=== PATIENT | male | born 1970 ===

== ENCOUNTER 2016-11-13 02:11 | Observation (INO) | payer MEDICAID, OTHER ==
[2016-11-13] MEDS: Albuterol-Ipratrop 3 mg / 0.5 (3 ml) UD IH SCH ×3 (02:35→03:18)
--- NOTE | 2016-11-13 02:53 | ED PDOC ---
Arrival/HPI - General Chief Complaint: Alcohol Ingestion Time Seen by Provider: 11/13/16 02:13 Historian: Patient - History of Present Illness Narrative History of Present Illness (Text): 11/13/16 02:55 A 46 year old male was brought in by EMS to the emergency department after patient was found stumbling while walking on the street. Notes falling and hitting his head but denies any loss of consciousness. Patient reports he shot up heroine prior to arrival, is a smoker and is complaining of shortness of breath and wheezing. Denies any other complaints at this time. Symptom Onset: Sudden Symptom Course: Unchanged Activities at Onset: Light Context: Street Past Medical History - Provider Review Nursing Documentation Reviewed: Yes - Infectious Disease Hx of Infectious Diseases: None - Cardiac Hx Cardiac Disorders: No Hx Hypertension: No - Pulmonary Hx Asthma: Yes - Neurological HX Cerebrovascular Accident: No Hx Seizures: No - Hematological/Oncological Hx Hepatitis C: Yes - Genitourinary/Gynecological Hx Sexually Transmitted Diseases: No - Psychiatric Hx Anxiety: Yes Hx Depression: Yes Hx Substance Use: Yes - Anesthesia Hx Anesthesia: No Family/Social History - Physician Review Nursing Documentation Reviewed: Yes Family/Social History: No Known Family HX Smoking Status: Heavy Smoker > 10 Cigarettes Daily Hx Alcohol Use: Yes Hx Substance Use: Yes Substance used: Cocaine, last used 04/25/2016 Allergies/Home Meds Allergies/Adverse Reactions: Allergies No Known Allergies Allergy (Verified 04/27/16 00:27) Home Medications: Home Meds Medication Instructions Recorded Confirmed Albuterol HFA [Ventolin HFA 90 2 puff PO PRN PRN 11/13/16 11/13/16 mcg/actuation (8 g)] Review of Systems - Physician Review All systems were reviewed & negative as marked: Yes - Review of Systems Respiratory: SOB Cardiovascular: absent: Chest Pain Gastrointestinal: absent: Abdominal Pain Physical Exam Vital Signs Reviewed: Yes Vital Signs Temp Pulse Resp BP Pulse Ox 11/13/16 04:12 84 16 132/75 95 11/13/16 02:12 97.9 F 77 12 143/86 99 Temperature: Afebrile Blood Pressure: Normal Pulse: Regular Respiratory Rate: Normal Appearance: Positive for: Well-Appearing, Non-Toxic, Comfortable Pain Distress: None Mental Status: Positive for: Alert and Oriented X 3 - Systems Exam Head: Present: Normocephalic, Abrasion (on forehead) Pupils: Present: PERRL Extroacular Muscles: Present: EOMI Conjunctiva: Present: Normal Mouth: Present: Moist Mucous Membranes Neck: Present: Normal Range of Motion Respiratory/Chest: Present: Wheezes. No: Respiratory Distress, Accessory Muscle Use Cardiovascular: Present: Regular Rate and Rhythm, Normal S1, S2. No: Murmurs Abdomen: Present: Normal Bowel Sounds. No: Tenderness, Distention, Peritoneal Signs Back: Present: Normal Inspection Upper Extremity: Present: Normal Inspection. No: Cyanosis, Edema Lower Extremity: Present: Normal Inspection. No: Edema Neurological: Present: GCS=15, CN II-XII Intact, Speech Normal Skin: Present: Warm, Dry, Normal Color. No: Rashes Psychiatric: Present: Alert, Oriented x 3, Normal Insight, Normal Concentration Medical Decision Making ED Course and Treatment: 11/13/16 02:51 Impression: A 46 year old male with shortness of breath and head injury. Plan: -- EKG -- chest xray -- CT head -- labs -- Urinalysis -- Duoneb, Solumedrol -- Reassess and disposition Prior Visits: Notes and results from previous visits were reviewed. Patient last reported to the emergency department on 04/27/16 for evaluation of suicidal ideation. Progress Notes: EKG: Ordered, reviewed, and independently interpreted the EKG. Rate : 91 BPM Rhythm : NSR Interpretation : Nonspecific ST segment changes Chest xray- No active disease, interpreted by me. - Lab Interpretations Lab Results: 11/13/16 02:45 11/13/16 02:45 Lab Results 11/13/16 03:15: Urine Color Yellow, Urine Appearance Clear, Urine pH 6.0, Ur Specific [place] 1.020, Urine Protein 30 H, Urine Glucose (UA) Negative, Urine Ketones Negative, Urine Blood Negative, Urine Nitrate Negative, Urine Bilirubin Negative, Urine Urobilinogen 0.2, Ur Leukocyte Esterase Negative, Urine RBC Negative, Urine WBC 0 - 2, Ur Epithelial Cells None 11/13/16 03:00: Urine Opiates Screen Positive H, Urine Methadone Screen Negative , Ur Barbiturates Screen Negative, Ur Phencyclidine Scrn Negative, Ur Amphetamines Screen Negative, U Benzodiazepines Scrn Negative, U Oth Cocaine Metabols Positive H, U Cannabinoids Screen Negative 11/13/16 02:45: Alcohol, Quantitative 70 H 11/13/16 02:45: Sodium 138, Potassium 4.1, Chloride 95 L, Carbon Dioxide 33, Anion Gap 14, BUN 10, Creatinine 0.8, Est GFR ( Amer) > 60, Est GFR (Non- Af Amer) > 60, Random Glucose 109, Calcium 8.8, Total Bilirubin 0.4, AST 166 H, ALT 212 H, Alkaline Phosphatase 104, Troponin I 0.03, Total Protein 7.7, Albumin 3.9, Globulin 3.8, Albumin/Globulin Ratio 1.0 L 11/13/16 02:45: WBC 8.4, RBC 4.67, Hgb 14.4, Hct 43.8, MCV 93.8, MCH 30.8, MCHC 32.9, RDW 14.4, Plt Count 294, MPV 9.2, Gran % 70.8 H, Lymph % (Auto) 18.3 L, [place] % (Auto) 8.8 H, Eos % (Auto) 1.7, Baso % (Auto) 0.4, Gran # 5.96, Lymph # 1.5, [place] # 0.7 H, Eos # 0.1, Baso # 0.03 I have reviewed the lab results: Yes - RAD Interpretation Radiology Orders: 11/13/16 02:30 CHEST PORTABLE [RAD] Stat 11/13/16 02:43 HEAD W/O CONTRAST [CT] Stat - EKG Interpretation Interpreted by ED Physician: Yes Type: 12 lead EKG - Medication Orders Current Medication Orders: Discontinued Medications Albuterol/Ipratropium (Duoneb 3 Mg/0.5 Mg (3 Ml) Ud) 3 ml IH Q15M NUNO Stop: 11/13/16 03:01 Last Admin: 11/13/16 03:18 Dose: 3 ml Methylprednisolone (Solu-Medrol) 125 mg IVP ONCE ONE Stop: 11/13/16 02:31 Last Admin: 11/13/16 03:00 Dose: 125 mg - Scribe Statement The provider has reviewed the documentation as recorded by the Pedro Denis Provider Scribe Attestation: All medical record entries made by the Daribisabella were at my direction and personally dictated by me. I have reviewed the chart and agree that the record accurately reflects my personal performance of the history, physical exam, medical decision making, and the department course for this patient. I have also personally directed, reviewed, and agree with the discharge instructions and disposition. Disposition/Present on Arrival - Present on Arrival History of DVT/PE: No History of Uncontrolled Diabetes: No Urinary Catheter: No History of Decub. Ulcer: No History Surgical Site Infection Following: None - Disposition Forms: [employer] (Sami)
[2016-11-13 03:00] LABS: BASO # 0.03 K/mm3 (0.0-2.0); BASO % 0.4 % (0.0-3.0); EOS # 0.1 (0.0-0.7); EOS % 1.7 % (1.5-5.0); GRAN # 5.96 (1.4-6.5); GRAN % 70.8 % (50.0-68.0); HEMOGLOBIN 14.4 gm/dL (14.0-18.0); LYMPH # 1.5 (1.2-3.4); LYMPH % 18.3 % (22.0-35.0); MEAN CELL VOLUME 93.8 fL (80.0-105.0); MEAN CORPUSCULAR HEMOGLOBIN 30.8 pg (25.0-35.0); MEAN CORPUSCULAR HGB CONC 32.9 g/dl (31.0-37.0); MEAN PLATELET VOLUME 9.2 fl (7.0-11.0); MONO # 0.7 (0.1-0.6); MONO % 8.8 % (1.0-6.0); PLATELET COUNT 294 10^3/uL (120.0-450.0); RBC 4.67 10^6/uL (3.5-6.1); RED CELL DISTRIBUTION WIDTH 14.4 % (11.5-14.5); WHITE BLOOD COUNT 8.4 10^3/ul (4.5-11.0)
[2016-11-13 03:12] LABS: ALBUMIN 3.9 g/dL (3.0-4.8); ALT/SGPT 212 U/L (7-56); AST/SGOT 166 U/L (15-59); BLOOD UREA NITROGEN 10 mg/dL (7-21); CALCIUM 8.8 mg/dL (8.4-10.5); GFR AFRICAN-AMERICAN > 60; GFR NON-AFRICAN AMERICAN > 60
[2016-11-13 03:22] LABS: TROPONIN I 0.03 ng/mL
[2016-11-13 03:52] LABS: BARBITURATES, UR NEGATIVE (NEGATIVE); BENZODIAZEPINES, UR NEGATIVE (NEGATIVE); OPIATES, UR POSITIVE (NEGATIVE); PHENCYCLIDINE, UR NEGATIVE (NEGATIVE)
[2016-11-13 04:00] LABS: URINE BILIRUBIN NEGATIVE (NEGATIVE); URINE BLOOD NEGATIVE (NEGATIVE); URINE GLUCOSE (UA) NEGATIVE (NEGATIVE); URINE LEUKOCYTE ESTERASE NEGATIVE Leu/uL (NEGATIVE); URINE NITRATE NEGATIVE (NEGATIVE); URINE PROTEIN 30 mg/dL (<30 mg/dL); URINE UROBILINOGEN 0.2 E.U./dL (<1 E.U./dL)
[2016-11-13 04:05] LABS: URINE APPEARANCE CLEAR (CLEAR); URINE COLOR YELLOW (YELLOW)
[2016-11-13 04:15] LABS: URINE RBC NEGATIVE /hpf (0-2); URINE WBC 0 - 2 /hpf (0-6)
[2016-11-13] MEDS ORDERED: Albuterol-Ipratrop 3 mg / 0.5 (3 ml) UD IH PRN ×2 (06:01→06:13)
--- NOTE | 2016-11-13 06:29 | CP.PCM.HP ---
<BenjiisabellaReal - Last Filed: 11/13/16 06:26> History of Present Illness - History of Present Illness History of Present Illness: This is a 64 year old Male with a PMHx of Asthma, Etoh Abuse, and Coccaine Abuse who presented to the ED with complaints of Chest Pain and SOB. Patient stated that he was working a side job in [place], he went to a bodega, and got dropped off on the street by his friend. He stated he suddenly felt dizzy and short of breath then fell to the ground. He denies any LOC, and denies anybody witnessing the fall. Patient is a poor history. History may be questionable. History told to ED physician is conflicting with admission history. ROS Complains of: Fatigue, SOB (improved in ED), jitteriness, numbness on radial portion of left forearm. Denies: Dizziness, Light headedness, Chest Pain, Nausea, Vomiting, motor loss , headache, changes in urinary and bowel habits. PMHx: Heroin Abuse, DVT, Coccaine Abuse, Asthma PSHx Denies Allergeis Denies Social History- Current Smoker (About a pack a day for 27 years) Cocaine, Alcohol Abuse Fam Hx- COPD (Sister- ), Asthma (Mother and several Nibblings), Present on Admission - Present on Admission Any Indicators Present on Admission: Yes History of DVT/PE: Yes Review of Systems - Review of Systems All systems: reviewed and no additional remarkable complaints except Past Patient History - Infectious Disease Hx of Infectious Diseases: None - Past Social History Smoking Status: Heavy Smoker > 10 Cigarettes Daily - CARDIAC Hx Cardiac Disorders: No Hx Hypertension: No - PULMONARY Hx Asthma: Yes - NEUROLOGICAL HX Cerebrovascular Accident: No Hx Seizures: No - HEMATOLOGICAL/ONCOLOGICAL Hx Hepatitis C: Yes - GENITOURINARY/GYNECOLOGICAL Hx Sexually Transmitted Disorders: No - PSYCHIATRIC Hx Anxiety: Yes Hx Depression: Yes Hx Substance Use: Yes - SURGICAL HISTORY Hx Surgeries: No - ANESTHESIA Hx Anesthesia: No Meds Allergies/Adverse Reactions: Allergies Allergy/AdvReac Type Severity Reaction Status Date / Time No Known Allergies Allergy Verified 04/27/16 00:27 Physical Exam - Constitutional Appears: Non-toxic, No Acute Distress - Head Exam Head Exam: ATRAUMATIC, NORMOCEPHALIC Additional comments: Abrasions on Forehead - Eye Exam Eye Exam: EOMI, Normal appearance. absent: Scleral icterus - ENT Exam ENT Exam: Mucous Membranes Moist Additional comments: Auricular lympadenopathy - Neck Exam Neck exam: Negative for: Lymphadenopathy, Thyromegaly - Respiratory Exam Respiratory Exam: Wheezes, NORMAL BREATHING PATTERN. absent: Clear to Auscultation Bilateral, Rales, Rhonchi, Respiratory Distress, Stridor - Cardiovascular Exam Cardiovascular Exam: RRR, +S1, +S2 - GI/Abdominal Exam GI & Abdominal Exam: Normal Bowel Sounds, Soft. absent: Organomegaly, Tenderness - Extremities Exam Extremities exam: Positive for: normal capillary refill. Negative for: calf tenderness, pedal edema - Neurological Exam Neurological exam: Alert, Oriented x3 - Psychiatric Exam Psychiatric exam: Normal Affect, Normal Mood - Skin Skin Exam: Dry, Intact, Normal Color, Warm Results - Vital Signs Recent Vital Signs: Last Vital Signs Temp 97.9 F 11/13/16 02:12 Pulse 84 11/13/16 04:12 Resp 16 11/13/16 04:12 BP 132/75 11/13/16 04:12 Pulse Ox 95 11/13/16 04:12 - Labs Result Diagrams: 11/13/16 02:45 11/13/16 02:45 Assessment & Plan - Assessment and Plan (Free Text) Assessment: 1. 46 year old male with PMHx of Asthma, EtOh Abuse, and Coccaine Abuse who is being admitted for Asthma Exacerbation. CT negative. EKG (read in ED) states NSR @ 83BPM. Fusion Complexes Plan: 1. COPD vs Asthma Exacerbation -Dunebs, Ipatropium, Xopenex, Solumedrol -Blood/Urine Cultures -CMP/CBC 2. Alcohol Abuse -CIWA Protocol -Multivitamins, Thiamine, Folate -Ativan -EKG -Mg/Phos -Vitals Q6 3. Chest Pain -EKG pending Read -Troponins 4. Elevated Liver Enzymes likely 2/2 Alcohol Abuse -Lipase GI/DVT proph -Protonix,SCDs Case reviewed and discussed with Attending Real [id number] - Date & Time Date: 11/13/16 Time: 06:33 <Ritika Rudolph - Last Filed: 11/14/16 08:54> Results - Vital Signs Recent Vital Signs: Last Vital Signs Temp 99.5 F 11/14/16 07:47 Pulse 73 11/14/16 07:47 Resp 19 11/14/16 07:47 BP 122/86 11/14/16 07:47 Pulse Ox 95 11/14/16 07:47 - Labs Result Diagrams: 11/14/16 06:00 11/14/16 06:00 Labs: Laboratory Results - last 24 hr 11/13/16 11/14/16 11/14/16 14:15 06:00 06:00 WBC 9.3 RBC 5.09 Hgb 15.5 Hct 45.7 MCV 89.8 MCH 30.5 MCHC 33.9 RDW 13.7 Plt Count 325 MPV 10.2 Gran % 82.3 H Lymph % (Auto) 11.7 L [place] % (Auto) 5.9 Eos % (Auto) 0.0 L Baso % (Auto) 0.1 Gran # 7.62 H Lymph # 1.1 L [place] # 0.6 Eos # 0.0 Baso # 0.01 Sodium 135 Potassium 4.1 Chloride 97 L Carbon Dioxide 30 Anion Gap 12 BUN 11 Creatinine 0.6 Est GFR ( Amer) > 60 Est GFR (Non-Af Amer) > 60 Random Glucose 122 H Calcium 9.4 Phosphorus 3.3 Magnesium 1.9 Total Bilirubin 0.6 AST 95 H ALT 149 H Alkaline Phosphatase 107 Troponin I < 0.01 D Total Protein 7.3 Albumin 3.5 Globulin 3.8 Albumin/Globulin Ratio 0.9 L Attending/Attestation - Attestation I have personally seen and examined this patient.: Yes I have fully participated in the care of the patient.: Yes I have reviewed all pertinent clinical information: Yes Notes (Text): 11/14/16 08:54 Agree with history ,physical examination, assessment and plan.
--- NOTE | 2016-11-13 07:26 | CT ---
EXAM: CT Head Without Intravenous Contrast CLINICAL HISTORY: 46 years old, male; Pain; Headache; Additional info: Head injury TECHNIQUE: Axial computed tomography images of the head/brain without intravenous contrast. This CT exam was performed using one or more of the following dose reduction techniques: automated exposure control, adjustment of the mA and/or kV according to patient size, and/or use of iterative reconstruction technique. EXAM DATE/TIME: 11/13/2016 2:43 AM COMPARISON: No relevant prior studies available. FINDINGS: No intracranial hemorrhage. No extra axial collections. No intracranial edema. No fluid in the sinuses or mastoid air cells. No depressed fractures. IMPRESSION: No acute intracranial injury.
[2016-11-13 07:36] LABS: TROPONIN I 0.03 ng/mL
--- NOTE | 2016-11-13 09:20 | RAD ---
HISTORY: sob COMPARISON: Prior portable chest 04/27/2016. FINDINGS: LUNGS: No active pulmonary disease. PLEURA: No significant pleural effusion identified, no pneumothorax apparent. CARDIOVASCULAR: Normal. OSSEOUS STRUCTURES: No significant abnormalities. VISUALIZED UPPER ABDOMEN: Normal. OTHER FINDINGS: None. IMPRESSION: No acute cardiopulmonary is appreciated or significant interval change 04/27/2016.
[2016-11-13] MEDS ORDERED: Levalbuterol 0.63 MG/3 ML Inhal Soln UD IH SCH (10:00)
[2016-11-13] MEDS: Multivitamin Therapeutic Tab PO SCH (10:04)
[2016-11-13] MEDS ORDERED: Folic Acid 1 MG, Thiamine 100 MG, Multivitamin (MVI) 10 ML in Dextrose 5% In Water 1,00... IV SCH (10:45)
--- NOTE | 2016-11-13 11:38 | CARD ---
APPROVED REPORT EKG Measurement Heart [id number] <Conclusion> Normal sinus rhythm Possible Left atrial enlargement Left axis deviation Incomplete right bundle branch block T wave abnormality, consider anterior ischemia Abnormal ECG
[2016-11-13 13:26] VITALS: BMI 27.3
[2016-11-13] MEDS ORDERED: Pneumococcal 23-Valent Vaccine IM ONE (13:26)
[2016-11-13] MEDS: Ipratropium 0.02% Inhal Soln (0.5 mg/2.5 ml) UD IH SCH ×2 (18:12→18:16)
[2016-11-13] MEDS: MethylPREDNISolone 40 mg Vial IVP SCH (21:23)
[2016-11-14] MEDS: Ipratropium 0.02% Inhal Soln (0.5 mg/2.5 ml) UD IH SCH ×4 (02:34→11:32)
[2016-11-14] MEDS: MethylPREDNISolone 40 mg Vial IVP SCH (05:57)
[2016-11-14 07:05] LABS: BASO # 0.01 K/mm3 (0.0-2.0); BASO % 0.1 % (0.0-3.0); GRAN # 7.62 (1.4-6.5); GRAN % 82.3 % (50.0-68.0); HEMOGLOBIN 15.5 gm/dL (14.0-18.0); LYMPH # 1.1 (1.2-3.4); LYMPH % 11.7 % (22.0-35.0); MEAN CELL VOLUME 89.8 fL (80.0-105.0); MEAN CORPUSCULAR HEMOGLOBIN 30.5 pg (25.0-35.0); MEAN CORPUSCULAR HGB CONC 33.9 g/dl (31.0-37.0); MEAN PLATELET VOLUME 10.2 fl (7.0-11.0); MONO # 0.6 (0.1-0.6); MONO % 5.9 % (1.0-6.0); PLATELET COUNT 325 10^3/uL (120.0-450.0); RBC 5.09 10^6/uL (3.5-6.1); RED CELL DISTRIBUTION WIDTH 13.7 % (11.5-14.5); WHITE BLOOD COUNT 9.3 10^3/ul (4.5-11.0)
[2016-11-14 07:08] LABS: ALB/GLOB RATIO 0.9 (1.1-1.8); ALBUMIN 3.5 g/dL (3.0-4.8); ALT/SGPT 149 U/L (7-56); AST/SGOT 95 U/L (15-59); BLOOD UREA NITROGEN 11 mg/dL (7-21); CALCIUM 9.4 mg/dL (8.4-10.5); GFR AFRICAN-AMERICAN > 60; GFR NON-AFRICAN AMERICAN > 60; MAGNESIUM 1.9 mg/dL (1.7-2.2)
[2016-11-14 07:47] VITALS: BP 122/86; PULSE 73; RESP 19; TEMP 99.5; O2SAT 95
[2016-11-14] MEDS: Multivitamin Therapeutic Tab PO SCH (08:50)
--- NOTE | 2016-11-14 11:46 | CP.PCM.PCO ---
Physician Communication Note - Physician Communication Note Physician Communication Note: MD contacted about pt signing out AMA, full risks of doing so explained
--- NOTE | 2016-11-14 12:43 | CP.PCM.DIS ---
<ROSA COLMENARES - Last Filed: 11/14/16 13:02> Provider - Provider Date of Admission: 11/13/16 05:23 Attending physician: Kirby Duran MD Time Spent in preparation of Discharge (in minutes): 45 Hospital Course - Lab Results Lab Results: Micro Results 11/13/16 06:30 Blood-Venous Blood Culture - Preliminary NO GROWTH AFTER 24 HOURS 11/13/16 05:43 Blood-Venous Blood Culture - Preliminary NO GROWTH AFTER 24 HOURS Most Recent Lab Values WBC 9.3 10^3/ul (4.5-11.0) 11/14/16 06:00 RBC 5.09 10^6/uL (3.5-6.1) 11/14/16 06:00 Hgb 15.5 gm/dL (14.0-18.0) 11/14/16 06:00 Hct 45.7 % (42.0-52.0) 11/14/16 06:00 MCV 89.8 fL (80.0-105.0) 11/14/16 06:00 MCH 30.5 pg (25.0-35.0) 11/14/16 06:00 MCHC 33.9 g/dl (31.0-37.0) 11/14/16 06:00 RDW 13.7 % (11.5-14.5) 11/14/16 06:00 Plt Count 325 10^3/uL (120.0-450.0) 11/14/16 06:00 MPV 10.2 fl (7.0-11.0) 11/14/16 06:00 Gran % 82.3 % (50.0-68.0) H 11/14/16 06:00 Lymph % (Auto) 11.7 % (22.0-35.0) L 11/14/16 06:00 Upton % (Auto) 5.9 % (1.0-6.0) 11/14/16 06:00 Eos % (Auto) 0.0 % (1.5-5.0) L 11/14/16 06:00 Baso % (Auto) 0.1 % (0.0-3.0) 11/14/16 06:00 Gran # 7.62 (1.4-6.5) H 11/14/16 06:00 Lymph # 1.1 (1.2-3.4) L 11/14/16 06:00 Upton # 0.6 (0.1-0.6) 11/14/16 06:00 Eos # 0.0 (0.0-0.7) 11/14/16 06:00 Baso # 0.01 K/mm3 (0.0-2.0) 11/14/16 06:00 Sodium 135 mmol/L (132-148) 11/14/16 06:00 Potassium 4.1 mmol/L (3.6-5.0) 11/14/16 06:00 Chloride 97 mmol/L (98-107) L 11/14/16 06:00 Carbon Dioxide 30 mmol/L (21-33) 11/14/16 06:00 Anion Gap 12 (10-20) 11/14/16 06:00 BUN 11 mg/dL (7-21) 11/14/16 06:00 Creatinine 0.6 mg/dL (0.5-1.4) 11/14/16 06:00 Est GFR ( Amer) > 60 11/14/16 06:00 Est GFR (Non-Af Amer) > 60 11/14/16 06:00 Random Glucose 122 mg/dL (70-110) H 11/14/16 06:00 Calcium 9.4 mg/dL (8.4-10.5) 11/14/16 06:00 Phosphorus 3.3 mg/dL (2.5-4.5) 11/14/16 06:00 Magnesium 1.9 mg/dL (1.7-2.2) 11/14/16 06:00 Total Bilirubin 0.6 mg/dL (0.2-1.3) 11/14/16 06:00 AST 95 U/L (15-59) H 11/14/16 06:00 ALT 149 U/L (7-56) H 11/14/16 06:00 Alkaline Phosphatase 107 U/L (38-133) 11/14/16 06:00 Troponin I < 0.01 ng/mL D 11/13/16 14:15 Total Protein 7.3 g/dL (5.8-8.3) 11/14/16 06:00 Albumin 3.5 g/dL (3.0-4.8) 11/14/16 06:00 Globulin 3.8 gm/dL 11/14/16 06:00 Albumin/Globulin Ratio 0.9 (1.1-1.8) L 11/14/16 06:00 Lipase 30 U/L (23-300) 11/13/16 06:30 TSH 3rd Generation 0.20 mIU/mL (0.46-4.68) L 11/13/16 06:50 Urine Color Yellow (YELLOW) 11/13/16 03:15 Urine Appearance Clear (CLEAR) 11/13/16 03:15 Urine pH 6.0 (4.7-8.0) 11/13/16 03:15 Ur Specific Eudora 1.020 (1.005-1.035) 11/13/16 03:15 Urine Protein 30 mg/dL (<30 mg/dL) H 11/13/16 03:15 Urine Glucose (UA) Negative mg/dL (NEGATIVE) 11/13/16 03:15 Urine Ketones Negative mg/dL (NEGATIVE) 11/13/16 03:15 Urine Blood Negative (NEGATIVE) 11/13/16 03:15 Urine Nitrate Negative (NEGATIVE) 11/13/16 03:15 Urine Bilirubin Negative (NEGATIVE) 11/13/16 03:15 Urine Urobilinogen 0.2 E.U./dL (<1 E.U./dL) 11/13/16 03:15 Ur Leukocyte Esterase Negative Edson/uL (NEGATIVE) 11/13/16 03:15 Urine RBC Negative /hpf (0-2) 11/13/16 03:15 Urine WBC 0 - 2 /hpf (0-6) 11/13/16 03:15 Ur Epithelial Cells None /hpf (0-5) 11/13/16 03:15 Urine Opiates Screen Positive (NEGATIVE) H 11/13/16 03:00 Urine Methadone Screen Negative (NEGATIVE) 11/13/16 03:00 Ur Barbiturates Screen Negative (NEGATIVE) 11/13/16 03:00 Ur Phencyclidine Scrn Negative (NEGATIVE) 11/13/16 03:00 Ur Amphetamines Screen Negative (NEGATIVE) 11/13/16 03:00 U Benzodiazepines Scrn Negative (NEGATIVE) 11/13/16 03:00 U Oth Cocaine Metabols Positive (NEGATIVE) H 11/13/16 03:00 U Cannabinoids Screen Negative (NEGATIVE) 11/13/16 03:00 Alcohol, Quantitative 70 mg/dL (0-10) H 11/13/16 02:45 - Hospital Course Hospital Course: Mr. Yañez is a 46 year old Male with a PMHx of Asthma, Etoh Abuse, and Coccaine Abuse who presented to the ED with complaints of Chest Pain and SOB. Pt is a poor historian. states that he was working a side job in [place], he went to a [employer], and got dropped off on the street by his friend. He stated he suddenly felt dizzy and short of breath then fell to the ground. He denies any LOC, and denies anybody witnessing the fall. UDS positive for opiates , cocaine and ETOH. EKG shwoed NSr, possible LA enlargement ,L axis deviation, incomplete RBBB, possible anterior ischemia due to T wave abnormalities. pt was noted to be wheezing, and so was started on duoneb treatments, as well as atrovent, and solumedrol. Patient was transferred to medicine floors for monitoring On the floors, the patient was noted to still be wheezing but had improved. Pt was on Ativan NUNO and PRN for withdrawal. pt was on aspiration, high fall risk and seizure precautions. pt was receiving thiamine, folic acid, and MV. A medrol dose pack and an albuterol pump were sent to [facility]'s pharmacy in anticipation of pt's discharge. Resident was paged about patient wanting to sign out AMA. Resident responded, and pt was dressed with his bags ready to leave. Resident explained to pt the risks of leaving before medically cleared, and that he is at risk of further asthma/COPD exacerbation, withdrawal symptoms which could possibly be fatal. pt expressed that he understood, and still wanted to sign out AMA. Patient was instructed to take the Medrol dose pack per instructions, and Albuterol as needed for shortness of breath. Also instructed to take Thiamine, Multivitamin and folic acid daily and strongly advised to abstain from drug and alcohol use. Pt should follow up with [facility] outpatient clinic on Tuesday. - Date & Time of H&P Date of H&P: 11/13/16 Time of H&P: 06:25 Discharge Exam - Additional Findings Additional findings: - Constitutional Appears: Non-toxic, No Acute Distress - Head Exam Head Exam: NORMOCEPHALIC Additional comments: Abrasions on Forehead - Eye Exam Eye Exam: EOMI, Normal appearance. absent: Scleral icterus - ENT Exam ENT Exam: Mucous Membranes Moist - Neck Exam Neck exam: Negative for: Lymphadenopathy, Thyromegaly - Respiratory Exam Respiratory Exam: Wheezes, NORMAL BREATHING PATTERN. absent: Clear to Auscultation Bilateral, Rales, Rhonchi, Respiratory Distress, Stridor - Cardiovascular Exam Cardiovascular Exam: RRR, +S1, +S2 - GI/Abdominal Exam GI & Abdominal Exam: Normal Bowel Sounds, Soft. absent: Organomegaly, Tenderness - Extremities Exam Extremities exam: Positive for: normal capillary refill. Negative for: calf tenderness, pedal edema - Neurological Exam Neurological exam: Alert, Oriented x3 - Psychiatric Exam Psychiatric exam: Normal Affect, Normal Mood (agitated and anxious) - Skin Skin Exam: Dry, Intact, Normal Color, Warm Discharge Plan - Discharge Medications Prescriptions: Albuterol HFA [Ventolin HFA 90 mcg/actuation (8 g)] 2 puff IH [id number] #1 inhaler Albuterol HFA [Ventolin HFA 90 mcg/actuation (8 g)] 2 puff PO PRN PRN #1 PRN Reason: Shortness Of Breath Folic Acid 1 mg PO DAILY #30 tab Methylprednisolone [Medrol Dose Pack (21 tabs)] 4 mg PO DAILY #21 mg Multivitamin Therapeutic Tab [Thera Tab] 1 tab PO 0800 #30 tab Thiamine [Vitamin B1 Tab] 100 mg PO DAILY #30 tab - Follow Up Plan Condition: GOOD Disposition: AGAINST MEDICAL ADVICE Additional Instructions: 1. Please take Medrol dose pack as directed 2. Take Thiamine, Multivitamin and folic acid daily 3. Please abstain from drug and alcohol use. 4. Follow up with [facility] outpatient clinic on Tuesday. 5. Take Albuterol as needed for shortness of breath. Referrals: [facility] at [facility] [Outside] <Riaz Garcia - Last Filed: 11/14/16 14:47> Provider - Provider Date of Admission: 11/13/16 05:23 Attending physician: Kirby Duran MD Hospital Course - Lab Results Lab Results: Micro Results 11/13/16 06:30 Blood-Venous Blood Culture - Preliminary NO GROWTH AFTER 24 HOURS 11/13/16 05:43 Blood-Venous Blood Culture - Preliminary NO GROWTH AFTER 24 HOURS Most Recent Lab Values WBC 9.3 10^3/ul (4.5-11.0) 11/14/16 06:00 RBC 5.09 10^6/uL (3.5-6.1) 11/14/16 06:00 Hgb 15.5 gm/dL (14.0-18.0) 11/14/16 06:00 Hct 45.7 % (42.0-52.0) 11/14/16 06:00 MCV 89.8 fL (80.0-105.0) 11/14/16 06:00 MCH 30.5 pg (25.0-35.0) 11/14/16 06:00 MCHC 33.9 g/dl (31.0-37.0) 11/14/16 06:00 RDW 13.7 % (11.5-14.5) 11/14/16 06:00 Plt Count 325 10^3/uL (120.0-450.0) 11/14/16 06:00 MPV 10.2 fl (7.0-11.0) 11/14/16 06:00 Gran % 82.3 % (50.0-68.0) H 11/14/16 06:00 Lymph % (Auto) 11.7 % (22.0-35.0) L 11/14/16 06:00 Upton % (Auto) 5.9 % (1.0-6.0) 11/14/16 06:00 Eos % (Auto) 0.0 % (1.5-5.0) L 11/14/16 06:00 Baso % (Auto) 0.1 % (0.0-3.0) 11/14/16 06:00 Gran # 7.62 (1.4-6.5) H 11/14/16 06:00 Lymph # 1.1 (1.2-3.4) L 11/14/16 06:00 Upton # 0.6 (0.1-0.6) 11/14/16 06:00 Eos # 0.0 (0.0-0.7) 11/14/16 06:00 Baso # 0.01 K/mm3 (0.0-2.0) 11/14/16 06:00 Sodium 135 mmol/L (132-148) 11/14/16 06:00 Potassium 4.1 mmol/L (3.6-5.0) 11/14/16 06:00 Chloride 97 mmol/L (98-107) L 11/14/16 06:00 Carbon Dioxide 30 mmol/L (21-33) 11/14/16 06:00 Anion Gap 12 (10-20) 11/14/16 06:00 BUN 11 mg/dL (7-21) 11/14/16 06:00 Creatinine 0.6 mg/dL (0.5-1.4) 11/14/16 06:00 Est GFR ( Amer) > 60 11/14/16 06:00 Est GFR (Non-Af Amer) > 60 11/14/16 06:00 Random Glucose 122 mg/dL (70-110) H 11/14/16 06:00 Calcium 9.4 mg/dL (8.4-10.5) 11/14/16 06:00 Phosphorus 3.3 mg/dL (2.5-4.5) 11/14/16 06:00 Magnesium 1.9 mg/dL (1.7-2.2) 11/14/16 06:00 Total Bilirubin 0.6 mg/dL (0.2-1.3) 11/14/16 06:00 AST 95 U/L (15-59) H 11/14/16 06:00 ALT 149 U/L (7-56) H 11/14/16 06:00 Alkaline Phosphatase 107 U/L (38-133) 11/14/16 06:00 Troponin I < 0.01 ng/mL D 11/13/16 14:15 Total Protein 7.3 g/dL (5.8-8.3) 11/14/16 06:00 Albumin 3.5 g/dL (3.0-4.8) 11/14/16 06:00 Globulin 3.8 gm/dL 11/14/16 06:00 Albumin/Globulin Ratio 0.9 (1.1-1.8) L 11/14/16 06:00 Lipase 30 U/L (23-300) 11/13/16 06:30 TSH 3rd Generation 0.20 mIU/mL (0.46-4.68) L 11/13/16 06:50 Urine Color Yellow (YELLOW) 11/13/16 03:15 Urine Appearance Clear (CLEAR) 11/13/16 03:15 Urine pH 6.0 (4.7-8.0) 11/13/16 03:15 Ur Specific Eudora 1.020 (1.005-1.035) 11/13/16 03:15 Urine Protein 30 mg/dL (<30 mg/dL) H 11/13/16 03:15 Urine Glucose (UA) Negative mg/dL (NEGATIVE) 11/13/16 03:15 Urine Ketones Negative mg/dL (NEGATIVE) 11/13/16 03:15 Urine Blood Negative (NEGATIVE) 11/13/16 03:15 Urine Nitrate Negative (NEGATIVE) 11/13/16 03:15 Urine Bilirubin Negative (NEGATIVE) 11/13/16 03:15 Urine Urobilinogen 0.2 E.U./dL (<1 E.U./dL) 11/13/16 03:15 Ur Leukocyte Esterase Negative Edson/uL (NEGATIVE) 11/13/16 03:15 Urine RBC Negative /hpf (0-2) 11/13/16 03:15 Urine WBC 0 - 2 /hpf (0-6) 11/13/16 03:15 Ur Epithelial Cells None /hpf (0-5) 11/13/16 03:15 Urine Opiates Screen Positive (NEGATIVE) H 11/13/16 03:00 Urine Methadone Screen Negative (NEGATIVE) 11/13/16 03:00 Ur Barbiturates Screen Negative (NEGATIVE) 11/13/16 03:00 Ur Phencyclidine Scrn Negative (NEGATIVE) 11/13/16 03:00 Ur Amphetamines Screen Negative (NEGATIVE) 11/13/16 03:00 U Benzodiazepines Scrn Negative (NEGATIVE) 11/13/16 03:00 U Oth Cocaine Metabols Positive (NEGATIVE) H 11/13/16 03:00 U Cannabinoids Screen Negative (NEGATIVE) 11/13/16 03:00 Alcohol, Quantitative 70 mg/dL (0-10) H 11/13/16 02:45 Attending/Attestation - Attestation I have personally seen and examined this patient.: Yes I have fully participated in the care of the patient.: Yes I have reviewed all pertinent clinical information, including history, physical exam and plan: Yes Notes (Text): 11/14/16 14:46 Patient seen and examined at bedside. labs, vitals, orders and notes reviewed. No new complaints provided.+wheezing noted but improved. Patient decided to leave AMA. discharge instructions and prescriptions provided and counselled against substance abuse.
== END 2016-11-14 12:15 | disposition left against medical advice (07) ==
LOC: ED 02:11 → ERH 05:23 → 3RNO 07:50
PROVIDERS: ADMIT Internal Medicine; ATTEND Internal Medicine
DX: J45.901 Unspecified asthma with (acute) exacerbation (principal); F14.10 Cocaine abuse, uncomplicated; F17.210 Nicotine dependence, cigarettes, uncomplicated; F10.10 Alcohol abuse, uncomplicated; R07.9 Chest pain, unspecified; R42 Dizziness and giddiness; Z91.81 History of falling
CPT/HCPCS: 36415; 70450; 71010; 80053; 80320; 80324; 80345; 80346; 80349; 80353; 80358; 80361; 81001; 83036; 83690; 83735; 83992; 84100; 84443; 84484; 85025; 87040; 93005; 94640; 94760; 96374; 99285; C9113; G0378; J2060; J2920; J2930; J3411; J7070